=== PATIENT | female | born 1970 | race Caucasian/White ===

== ENCOUNTER 2022-04-06 10:31 | Emergency (ER) | payer BC, SELFPAY ==
--- NOTE | ~2022-04-06 | XR_ITS ---
EXAMINATION: XR knee RT 3V DATE: 04/06/2022 12:17 INDICATION: Generalized right knee pain and swelling post fall TECHNIQUE: Anteroposterior, oblique and crosstable lateral views of the right knee were obtained COMPARISON: None. FINDINGS: Alignment is normal. No fracture. No joint effusion/layering lipohemarthrosis. Bone island at the la teral side of the tibial metaphysis. Mild prepatellar soft tissue swelling. IMPRESSION: 1. Right knee joint effusion or acute osseous abnormality. Reviewed, dictated and finalized at location A. PUMPER
--- NOTE | 2022-04-06 11:02 | ECG_ITS ---
Measurements Intervals [place] Rate: 89 P: 34 ND: 161 QRS: 19 QRSD: 81 T: 13 QT: 345 QTc: 421 Interpretive Statements SINUS RHYTHM POSSIBLE LEFT ATRIAL ENLARGEMENT BORDERLINE T WAVE ABNORMALITY- INFERIOR LEADS BASELINE ARTIFACT- II, III, AVF BORDERLINE ECG NO PREVIOUS ECG AVAILABLE FOR COMPARISON Electronically Signed On 04-06-2022 11:54:39 GEOTECH[employer]ICAL INTERN by Clint Jason D.O.
[2022-04-06 11:10] VITALS: BP 200/130; PULSE 97; RESP 15; TEMP 37.1; O2SAT 97
[2022-04-06 11:47] LABS: Basophils Percent Auto 0.4 % (0.2-1.2); Eosinophils Percent Auto 0.3 % (0-4.4); Hematocrit 41.8 % (37.0-47.0); Immature Granulocyte Absolute 0.04 K/mm3 (0.00-0.031); Immature Granulocyte Percent A 0.4 % (0-0.5); Lymphocytes Absolute Auto 2.14 K/mm3 (0.9-3.2); Lymphocytes Percent Auto 19.2 % (18.3-44.2); Mean Corpuscular HGB Conc 33.5 g/dl (32-36); Mean Corpuscular Hemoglobin 28.5 pg (26-34); Mean Corpuscular Volume 85.1 fl (80-100); Mean Platelet Volume 10.1 fl (7.4-10.4); Monocytes Absolute Auto 0.6 K/mm3 (0.1-0.6); Monocytes Percent Auto 5.3 % (2.6-8.5); Neutrophils Absolute Auto 8.3 K/mm3 (1.3-6.7); Neutrophils Percent Auto 74.4 % (45.5-73.1); Platelet Count Result 293 k/mm3 (150-375); Red Blood Count 4.91 M/mm3 (4.2-5.4); Red Cell Distribution Width 12.8 % (11.5-14.5); White Blood Count 11.1 K/mm3 (4.5-10.0)
[2022-04-06 11:48] VITALS: PULSE 85
[2022-04-06] MEDS: METOPROLOL TARTRATE INJ 5 MG/5 ML VIAL IV PUSH (11:48)
[2022-04-06 12:02] LABS: Alanine Aminotransferase 32 U/L (6-35); Albumin Level 4.5 g/dL (3.5-5.1); Alkaline Phosphatase 76 U/L (38-126); Anion Gap 14 mmol/L (8-16); Aspartate Amino Transferase 34 U/L (14-36); Bilirubin,Total 0.4 mg/dL (0.2-1.3); Blood Urea Nitrogen 12 mg/dL (7-17); Carbon Dioxide 26 mmol/L (22-30); Chloride 100 mmol/L (98-107); Estimated Glomerular Filt Rate > 60; Glucose 100 mg/dL (65-110); Potassium 3.9 mmol/L (3.4-5.0); Sodium 140 mmol/L (137-145)
--- NOTE | 2022-04-06 12:18 | ED.GENADULT ---
HPI - General Adult General Chief complaint: Recheck/Abnormal Lab/Rx Stated complaint: fall with right knee pain - sent for UC with HTN Time Seen by Provider: 04/06/22 10:58 History of Present Illness HPI narrative: 52-year-old female presents to emergency room for urgent care for multiple complaints. Patient was seen at [facility] urgent care earlier today after falling and hitting her knee on the concrete. Patient was complaining of right knee pain had an x-ray completed. Patient was found to have elevated blood pressures on multiple readings, was encouraged to come to the emergency room for further evaluation. Patient denies dizziness, lightheadedness, chest pain or shortness of breath. Denies visual changes or frequent urination. Denies headaches Related Data Allergies Allergy/AdvReac Type Severity Reaction Status Date / Time No Known Allergies Allergy Verified 04/06/22 10:32 Review of Systems Review of Systems: CONSTITUTIONAL: Denies fever, chills, or sweats. EYES: Denies visual changes, redness, or discharge. ENT: Denies rhinorrhea, congestion, sore throat, or otalgia. CARDIOVASCULAR: Denies chest pain, palpitations, or edema. RESPIRATORY: Denies cough or dyspnea. GASTROINTESTINAL: Denies abdominal pain, nausea, vomiting, or diarrhea. GENITOURINARY: Denies dysuria or hematuria. SKIN: Denies rash or itching. MUSCULOSKELETAL: Reports right knee pain NEUROLOGIC: Denies headache, numbness, dizziness, or weakness. PSYCHIATRIC: Denies anxiety or depression. Exam Narrative: GENERAL: Well-appearing, well-nourished, no physical limitations, and in no acute distress. HEAD: Normocephalic, atraumatic. EYES: Conjunctivae normal, PERRLA and EOMI. ENT: External nose normal, Nares clear, no rhinorrhea or epistaxis. Mucous membranes moist. Oropharynx without tonsillar hypertrophy exudate or other lesions. External ears normal, bilateral TMs normal bilaterally NECK: Supple. No carotid bruits or JVD CHEST: Clear to auscultation. No respiratory distress. No wheezes rales or rhonchi. HEART: Regular rate and rhythm. No murmur heard. Normal peripheral pulses. EXTREMITIES: rt knee: +TTP with STS, No joint laxity, no obvious bony abnormality, neurovascular SKIN: Warm, dry, no rash. No noted wounds NEURO: No focal deficits. Alert and oriented x3. MAEW. CN's II-XI intact bilaterally, normal gait PSYCH: Cooperative. Normal mood and affect. Course Vital Signs Vital signs: Vital Signs Temperature 37.1 C 04/06/22 11:10 Pulse Rate 97 04/06/22 11:10 Respiratory Rate 15 04/06/22 11:10 Blood Pressure 200/130 H 04/06/22 11:10 Pulse Oximetry 97 04/06/22 11:10 Oxygen Delivery Room Air 04/06/22 11:10 Temperature 37.1 C 04/06/22 11:10 Pulse Rate 85 04/06/22 11:48 Respiratory Rate 15 04/06/22 11:10 Blood Pressure 200/130 H 04/06/22 11:10 Pulse Oximetry 97 04/06/22 11:10 Oxygen Delivery Room Air 04/06/22 11:10 Medical Decision Making Vital Signs Vital Signs: Vital Signs Temperature 37.1 C 04/06/22 11:10 Pulse Rate 97 04/06/22 11:10 Respiratory Rate 15 04/06/22 11:10 Blood Pressure 200/130 H 04/06/22 11:10 Pulse Oximetry 97 04/06/22 11:10 Oxygen Delivery Room Air 04/06/22 11:10 Temperature 37.1 C 04/06/22 11:10 Pulse Rate 85 04/06/22 11:48 Respiratory Rate 15 04/06/22 11:10 Blood Pressure 200/130 H 04/06/22 11:10 Pulse Oximetry 97 04/06/22 11:10 Oxygen Delivery Room Air 04/06/22 11:10 Lab Data Result diagrams: 04/06/22 11:36 04/06/22 11:36 Labs: Lab Results 04/06/22 04/06/22 Range/Units 11:36 11:36 WBC 11.1 H (4.5-10.0) K/mm3 RBC 4.91 (4.2-5.4) M/mm3 Hgb 14.0 (12.0-15.0) g/dL Hct 41.8 (37.0-47.0) % MCV 85.1 (80-100) fl MCH 28.5 (26-34) pg MCHC 33.5 (32-36) g/dl RDW 12.8 (11.5-14.5) % Plt Count 293 (150-375) k/mm3 MPV 10.1 (7.4-10.4) fl Immature Gran % (Auto) 0.4 (0-0.5)
[2022-04-06 12:30] VITALS: BP 156/96
[2022-04-06 12:52] VITALS: BP 176/98
[2022-04-06 13:33] VITALS: BP 161/97; PULSE 80; RESP 17
== END 2022-04-06 13:33 | disposition home or self-care (01) ==
PROVIDERS: Emergency Provider Nurse Practitioner Family
DX: S80.01XA Contusion of right knee, initial encounter (principal); R03.0 Elevated blood-pressure reading, without diagnosis of hypertension; W19.XXXA Unspecified fall, initial encounter
CPT/HCPCS: 36415; 73562; 80053; 85025; 93005; 96374; 99284

== ENCOUNTER 2025-03-17 22:36 | Emergency (ER) | payer OTHER, SELFPAY ==
--- NOTE | ~2025-03-17 | CT_ITS ---
EXAMINATION: CT BRAIN W/O DATE: 03/18/2025 00:37 INDICATION: Headache TECHNIQUE: Computed tomography (CT) of the head was performed without intravenous contrast. The dose-length product was 681.00 mGy-cm. Automated exposure control and iterative reconstruction technique were employed. COMPARISON: No prior studies for comparison. FINDINGS: Normal brain parenchymal volume for age. Normal schrader-white differentiation. No acute intracranial hemorrhage, infarction, mass or mass effect. No ventriculomegaly or midline shift. Midline sagittal images demonstrate a normal corpus callosum, craniovertebral junction and sella turcica. Basilar cisterns are patent. Paranasal sinuses and mastoids are pneumatized. No depressed skull fractures. Prominent dural calcifications noted bilaterally. IMPRESSION: 1. No acute intracranial abnormality. Reviewed, dictated and finalized at location O.
[2025-03-17 22:40] VITALS: BP 179/90; PULSE 91; RESP 20; TEMP 36.8; O2SAT 97
[2025-03-18] MEDS: ACETAMINOPHEN 500 MG TABLET 1000 MG PO (00:54)
[2025-03-18] MEDS: SODIUM CHLORIDE 0.9% IV 1,000 ML 999 ML IV CONT (00:56)
[2025-03-18] MEDS: METOCLOPRAMIDE HCL INJ 10 MG/2 ML VIAL IV PUSH (00:56)
--- NOTE | 2025-03-18 01:02 | ED.HA ---
HPI - Headache General Chief Complaint: Headache Stated Complaint: headache Time Seen by Provider: 03/17/25 23:25 Source: patient Mode of arrival: ambulatory Limitations: no limitations History of Present Illness HPI Narrative: This is a 55 year old female that presents to the ER for headache. Reports she took her blood pressure tonight and it was elevated which prompted her to be seen. She has been out of her HCTZ for a couple of days. Denies vision changes, vomiting, numbness, weakness. Related Data Allergies Allergy/AdvReac Type Severity Reaction Status Date / Time No Known Allergies Allergy Verified 03/17/25 22:44 Review of Systems Review of Systems: All systems reviewed & are unremarkable except as noted in HPI and below PMFSH Past Medical History Medical History (Updated 03/18/25 @ 01:36 by Maame Phan PA-C) Hypertension Exam Narrative: GENERAL: Well-appearing, well-nourished, and in no acute distress. HEAD: Normocephalic, atraumatic. EYES: PERRLA and EOMI. ENT: Nares clear, no rhinorrhea or epistaxis. Mucous membranes moist. Oropharynx without tonsillar hypertrophy exudate or other lesions. Bilateral TMs pearly schrader non-bulging NECK: Supple. No adenopathy or masses. CHEST: Clear to auscultation. No respiratory distress. No wheezes rales or rhonchi HEART: Regular rate and rhythm. No murmur heard. Normal peripheral pulses. EXTREMITIES: Normal range of motion. No edema. SKIN: Warm, dry, no rash. NEURO: No focal deficits. Alert and oriented x3. CN II-XII grossly intact PSYCH: Normal mood and affect Course Vital Signs Vital signs: Vital Signs Temperature 98.2 F 03/17/25 22:40 Pulse Rate 91 03/17/25 22:40 Respiratory Rate 20 03/17/25 22:40 Blood Pressure 179/90 H 03/17/25 22:40 Pulse Oximetry 97 03/17/25 22:40 Oxygen Delivery Room Air 03/17/25 22:40 Temperature 98.2 F 03/17/25 22:40 Pulse Rate 91 03/17/25 22:40 Respiratory Rate 20 03/17/25 22:40 Blood Pressure 179/90 H 03/17/25 22:40 Pulse Oximetry 97 03/17/25 22:40 Oxygen Delivery Room Air 03/17/25 22:40 MDM - Headache MDM Narrative Medical decision making narrative: Patient presents to the emergency department for a headache. Noting elevated blood pressure. She has been out of her blood pressure medication for couple days. Patient is afebrile and nontoxic appearing. She is neurologically intact. Blood pressure 179 upon arrival, this down trended to 150s without intervention. CT brain without acute findings. Patient updated on her workup and agrees with plan of care. She is to follow up with primary provider. She was given warnings to return to the ER. Reports she has a prescription for HCTZ at the pharmacy that she can pick Differential Diagnosis Differential diagnosis: Likely migraine, tension headache, subarachnoid hemorrhage, headache, sinusitis and other (hypertension) Imaging Data Radiologist's impression: CT brain: No acute intracranial hemorrhage, no midline shift or mass effect. The territorial schrader-white matter differentiation is maintained throughout. The ventricles and sulci are commensurate with age Critical Care Time Critical Care Time Critical Care Time: No Discharge Plan Discharge Clinical Impression: Headache Qualifiers: Headache type: unspecified Headache chronicity pattern: acute headache Intractability: not intractable Qualified Code(s): R51.9 - Headache, unspecified Hypertension Qualifiers: Hypertension type: unspecified Qualified Code(s): I10 - Essential (primary) hypertension Patient Disposition: Home Condition: Improved Instructions: Acute Headache (ED), Chronic Hypertension (ED) Additional Instructions: Return to the emergency department if you experience fever, vomiting, weakness, numbness, or any other symptoms that are concerning to you. Take your blood pressure medication as prescribed Follow up with your primary care doctor Patient Language: Serbian Follow-up/Referrals: PHYSICIAN,[employer] HELPER [Primary Care Provider, Internal Medicine]
== END 2025-03-18 02:33 | disposition home or self-care (01) ==
PROVIDERS: Emergency Provider Physician Assistant
DX: R51.9 Headache, unspecified (principal); I10 Essential (primary) hypertension; T50.2X6A Underdosing of carbonic-anhydrase inhibitors, benzothiadiazides and other diuretics, initial encounter; Z91.128 Patient's intentional underdosing of medication regimen for other reason
CPT/HCPCS: 70450; 96361; 96374; 96375; 99284; A9270; J1200; J2765; J7030